=== PATIENT | female | born 1990 | race Caucasian/White ===

== ENCOUNTER 2017-05-18 22:14 | Emergency (ER) | payer BC ==
[~2017-05-18] VITALS: Ht 157.5 cm; Wt 61.0 kg
[2017-05-19] MEDS ORDERED: MAGNESIUM/ALUMINUM HYDROXIDE/SIMETHICONE 30ML UDC PO STA (00:33)
[2017-05-19] MEDS ORDERED: KETOROLAC 60MG/2ML VIAL IM ONE (00:45)
[2017-05-19] MEDS ORDERED: FAMOTIDINE 20MG TABLET PO ONE (00:45)
[2017-05-19 01:40] VITALS: BP 110/66
== END 2017-05-19 01:50 | disposition home or self-care (01) ==
LOC: ER 22:14
DX: R07.89 Other chest pain (principal)
CPT/HCPCS: 71010; 81025; 93005; 96372; 99284; J1885

== ENCOUNTER 2017-08-14 02:28 | Emergency (ER) | payer BC ==
[~2017-08-14] VITALS: Ht 157.5 cm; Wt 63.0 kg
[2017-08-14 05:40] VITALS: BP 139/71
[2017-08-14 07:05] LABS: CLARITY URINE CLOUDY (CLEAR); COLOR URINE YELLOW (YELLOW); GLUCOSE URINE NEGATIVE (NEGATIVE); KETONES URINE TRACE (NEGATIVE); LEUKOCYTE ESTERASE URINE NEGATIVE (NEGATIVE); NITRITE URINE NEGATIVE (NEGATIVE); OCCULT BLOOD URINE NEGATIVE (NEGATIVE); PROTEIN URINE 1+ (NEGATIVE); SPECIFIC GRAVITY URINE 1.029 (1.005-1.030); UROBILINOGEN URINE 0.2 E.U./dL (0.2-1.0)
== END 2017-08-14 05:41 | disposition home or self-care (01) ==
LOC: ER 02:29
DX: K52.9 Noninfective gastroenteritis and colitis, unspecified (principal)
CPT/HCPCS: 81001; 81025; 99283; Z7610